=== PATIENT | male | born 1975 | race Caucasian/White ===

== ENCOUNTER 2017-06-27 05:40 | Day surgery (SDC) | payer OTHER ==
[~2017-06-27] VITALS: Ht 177.8 cm; Wt 98.9 kg
--- NOTE | 2017-06-27 09:02 | NUR ---
06/27/17 0902 Caroline Nettles 0813 PATIENT ARRIVES TO PACU SLEEPING, OPENS EYES TO VERBAL STIMULI, THEN BACK TO SLEEP. RESP EVEN AND UNLABORED, MASK AT 6 LITERS.
--- NOTE | 2017-06-28 07:50 | NUR ---
PT SEEMED TO BE RESTING COMFORTABLY POSSIBLE. HE WAS ALERT AND ORIENTED. GUARDS BY HIS SIDE, HE WAS PLEASANT, RATHER MATTER OF FACT. I THEN EXTENDED A BLESSING, HE THANKED ME. WILL FOLLOW NEEDED
--- NOTE | 2017-07-02 07:27 | OR ---
[facility] [address], [place] [address] Signed DATE OF OPERATION: 06/27/2017 SURGEON: Josie Mcdaniel MD PREOPERATIVE DIAGNOSIS: Hallux rigidus, left foot. POSTOPERATIVE DIAGNOSIS: Hallux rigidus, left foot. PROCEDURE: Cheilectomy, left hallux. ANESTHESIA: General. SPECIMENS AND COMPLICATIONS: There were no specimens or complications. TOURNIQUET TIME: Little over half an hour. WHAT WAS DONE: The patient was taken to the operating room. After anesthesia was induced and airway secured, the patient was positioned, prepped and draped in a routine sterile fashion. The leg was exsanguinated with an Esmarch bandage. A dorsal medial incision was made and centered over the hallux MTP joint. Skin was divided sharply. Subcutaneous tissue was bluntly spread to preserve the dorsal cutaneous nerve. We then did a dorsal capsulectomy just to the medial aspect of the EHL tendon. The capsule was then stripped off the metatarsal head dorsally and medially and a small portion laterally. We then gently flexed the MTP joint and used a 10 mm oscillating saw to perform the cheilectomy. We then checked the dorsiflexion of the MTP joint and found we had almost 90 degrees of dorsiflexion of the MTP joint. We therefore used a small rongeur to smooth all the edges and removed some additional osteophytes medially and laterally on the metatarsal head. The wound was then gently irrigated. A small amount of bone wax was placed on the open cheilectomy site and it gently worked into the bone. We then re-irrigated the wound and closed in a standard fashion closing the capsule with 3-0 Vicryl and the skin with 4-0 nylon. A sterile bulky dressing was applied and the patient was awakened and taken to the recovery room where he arrived in stable condition. Counts were correct and Electronically Signed By: JOSIE MCDANIEL MD 07/02/17 0727 PATIENT NAME: NICOLETTE HORNER OPERATIVE REPORT DATE OF : 79 REPORT #: [id number] PHYSICIAN: JOSIE MCDANIEL MD PCP: NO PRIMARY CARE PHYSICIAN REPORT IS CONFIDENTIAL AND NOT TO BE RELEASED WITHOUT AUTHORIZATION [address] [address] Signed antibiotic protocols were followed. Josie Mcdaniel MD WFB/MODL /[id number] Copies: ~ Electronically Signed By: JOSIE MCDANIEL MD 07/02/17 0727 PATIENT NAME: NICOLETTE HORNER OPERATIVE REPORT DATE OF : 79 REPORT #: [id number] PHYSICIAN: JOSIE MCDANIEL MD PCP: NO PRIMARY CARE PHYSICIAN REPORT IS CONFIDENTIAL AND NOT TO BE RELEASED WITHOUT AUTHORIZATION
== END 2017-06-27 11:10 | disposition home or self-care (01) ==
LOC: OPS 05:40 → DS 05:40 → OPS 06:45
PROVIDERS: Orthopaedic Surgery
PROC: 0QBP0ZZ Excision of Left Metatarsal, Open Approach (ICD-10-PCS; principal; 2017-06-27 06:55)
DX: M20.22 Hallux rigidus, left foot (principal); Z87.891 Personal history of nicotine dependence
CPT/HCPCS: 01480; J0690; J1885; J2250; J2405; J2704; J2765; J3010; J7120